=== PATIENT | female | born 1995 | race Caucasian/White ===

== ENCOUNTER 2016-06-07 13:07 | Emergency (ER) | payer BC ==
[2016-06-07 14:45] VITALS: BP 101/64
--- NOTE | 2016-06-07 15:38 | UC ---
Respiratory Complaint HPI - HPI Summary HPI Summary: Yesterday developed fever of 104F, nasal congestion, vomited x 1, and cough. Also has had lumbar pain for a few days, worse with fever. - History of Current Complaint Chief Complaint: UCGeneralIllness Stated Complaint: FEVER,CHILLS,LOW BACK PAIN Time Seen by Provider: 06/07/16 15:20 Hx Obtained From: Patient Hx Last Menstrual Period: 06/07/16 ?: No Onset/Duration: Gradual Onset, Lasting Hours Timing: Constant Character: Cough: Nonproductive Associated Signs And Symptoms: Positive: Fever, Chills, Nasal Congestion - Allergies/Home Medications Allergies/Adverse Reactions: Allergies Allergy/AdvReac Type Severity Reaction Status Date / Time No Known Allergies Allergy Verified 06/07/16 15:27 Home Medications: Home Medications Control 1 dose PO DAILY 06/07/16 [History Confirmed 06/07/16] PMH/Surg Hx/FS Hx/Imm Hx Previously Healthy: Yes - Surgical History Surgical History: None - Family History Known Family History: Negative: Blood Disorder - Social History Occupation: Student Alcohol Use: None Substance Use Type: None Smoking Status (MU): Never Smoked Tobacco Review of Systems Constitutional: Fever, Chills Skin: Negative Eyes: Negative ENT: Nasal Discharge Respiratory: Cough Cardiovascular: Negative Gastrointestinal: Vomiting Genitourinary: Negative Motor: Negative Neurovascular: Negative Musculoskeletal: Negative Neurological: Negative Psychological: Negative All Other Systems Reviewed And Are Negative: Yes Physical Exam Triage Information Reviewed: Yes Appearance: Well-Appearing, No Pain Distress, Well-Nourished Vital Signs: Initial Vital Signs Temp 99.9 F 06/07/16 14:41 Pulse 116 06/07/16 14:41 Resp 16 06/07/16 14:41 BP 101/64 06/07/16 14:41 Pulse Ox 99 06/07/16 14:41 Vital Signs Reviewed: Yes Eye Exam: Normal Eyes: Positive: Conjunctiva Clear ENT: Positive: Hearing grossly normal, Pharynx normal, Nasal congestion, TMs normal. Negative: Tonsillar swelling, Tonsillar exudate Dental Exam: Normal Neck exam: Normal Neck: Positive: Supple, Nontender, No Lymphadenopathy Respiratory Exam: Other - occ cough Respiratory: Positive: Chest non-tender, Lungs clear, Normal breath sounds, No respiratory distress, No accessory muscle use Cardiovascular: Positive: No Murmur, Tachycardia Abdomen Description: Positive: Nontender, No Organomegaly, Soft. Negative: Bruit, CVA Tenderness (R), CVA Tenderness (L) Musculoskeletal Exam: Normal Neurological Exam: Normal Psychological Exam: Normal Skin Exam: Normal Diagnostic Evaluation - Laboratory O2 Sat by Pulse Oximetry: 99 Respiratory Course/Dx - Differential Dx/Diagnosis Provider Diagnoses: influenza like illness Discharge - Discharge Plan Condition: Stable Disposition: HOME Prescriptions: Guaifenesin-Codeine [Guaiatussin AC] 5 - 10 ml PO BEDTIME #120 ml MDD 10mL Patient Education Materials: Influenza (ED) Additional Instructions: As we discussed, tamiflu is not considered standard of care for young, healthy people without lung problems. You will probably get better in about the same amount of time whether you start the medicine or not, but you have a high likelihood of experiencing unpleasant side effects such as vomiting. Call or return if you develop increasing fever, shortness of breath, chest pain , bloody sputum, or otherwise worsen. If you have not improved at all after several days, contact your primary care physician or return here.
== END 2016-06-07 15:48 | disposition home or self-care (01) ==
LOC: UCCORT 13:07
DX: J11.1 Influenza due to unidentified influenza virus with other respiratory manifestations (principal)
CPT/HCPCS: 81025; 87086; 99202; G0463

== ENCOUNTER 2017-07-12 09:49 | Emergency (ER) | payer BC ==
[2017-07-12 10:30] VITALS: BP 112/58
[2017-07-12] MEDS ORDERED: Ondansetron ODT TAB* 4 MG PO ONE (10:47)
--- NOTE | 2017-07-12 10:50 | UC ---
FLU HPI - HPI Summary HPI Summary: fevers chills cough and body aches began last night then had a couple episodes of emesis with blood streaking-- - History of Current Complaint Chief Complaint: UCRespiratory Stated Complaint: VOMITING, FEVER Time Seen by Provider: 07/12/17 10:34 Hx Obtained From: Patient Hx Last Menstrual Period: 06/22/17 ?: No Onset/Duration: Sudden Onset, Lasting Days - 1, Still Present Severity Currently: Moderate Severity Initially: Moderate Pain Intensity: 5 Pain Scale Used: 0-10 Numeric Associated Signs & Symptoms: Positive: Fever, Myalgia, Cough, Nasal Congestion, Headache, Vomiting Related Hx: Possible Flu/Infectious Exposure - Allergy/Home Medications Allergies/Adverse Reactions: Allergies Allergy/AdvReac Type Severity Reaction Status Date / Time No Known Allergies Allergy Verified 07/12/17 10:30 Home Medications: Home Medications Acetaminophen [Acetaminophen Extra Strength] 1,000 mg PO ONCE PRN 07/12/17 [ History Confirmed 07/12/17] Norgestimate-Ethinyl Estradiol [Sprintec 28 Day Tablet] 1 tab PO DAILY 07/12/17 [History Confirmed 07/12/17] PMH/Surg Hx/FS Hx/Imm Hx Previously Healthy: Yes - Surgical History Surgical History: Yes Surgery Procedure, Year, and Place: appy 2017 - Family History Known Family History: Positive: None Negative: Blood Disorder - Social History Occupation: Student Lives: Dormitory/Roommates - 2 members of her friend group have similar symptoms Alcohol Use: Weekly Substance Use Type: None Smoking Status (MU): Never Smoked Tobacco Review of Systems Constitutional: Fever, Chills, Fatigue Skin: Negative Eyes: Negative ENT: Nasal Discharge Respiratory: Cough Cardiovascular: Negative Gastrointestinal: Vomiting, Nausea Genitourinary: Negative Motor: Negative Neurovascular: Negative Musculoskeletal: Myalgia Neurological: Negative Psychological: Anxious Is Patient Immunocompromised?: No All Other Systems Reviewed And Are Negative: Yes Physical Exam Triage Information Reviewed: Yes Appearance: Well-Appearing, No Pain Distress, Well-Nourished Vital Signs: Initial Vital Signs Temp 99.2 F 07/12/17 10:21 Pulse 99 07/12/17 10:21 Resp 16 07/12/17 10:21 BP 112/58 07/12/17 10:21 Pulse Ox 99 07/12/17 10:21 Vital Signs Reviewed: Yes Eye Exam: Normal Eyes: Positive: Conjunctiva Clear ENT Exam: Normal ENT: Positive: Normal ENT inspection, Hearing grossly normal, Pharynx normal, TMs normal, Uvula midline. Negative: Nasal congestion, Nasal drainage, Tonsillar swelling, Tonsillar exudate, Trismus, Muffled voice, Hoarse voice, Dental tenderness, Sinus tenderness Dental Exam: Normal Neck exam: Normal Neck: Positive: Supple, Nontender, No Lymphadenopathy Respiratory Exam: Normal Respiratory: Positive: Chest non-tender, Lungs clear, Normal breath sounds, No respiratory distress, No accessory muscle use Cardiovascular Exam: Normal Cardiovascular: Positive: RRR, No Murmur, Pulses Normal, Brisk Capillary Refill Abdominal Exam: Normal Abdomen Description: Positive: Nontender, No Organomegaly, Soft. Negative: CVA Tenderness (R), CVA Tenderness (L), Distended, Guarding Bowel Sounds: Positive: Present Musculoskeletal Exam: Normal Musculoskeletal: Positive: Strength Intact, ROM Intact, No Edema Neurological Exam: Normal Neurological: Positive: Alert, Muscle Tone Normal Psychological Exam: Normal Skin Exam: Normal Diagnostics - Laboratory Diagnostic Studies Completed/Ordered: influenza B (+) Re-Evaluation - Re-Evaluation First Eval Change: Improved - with zofran Flu Course/Dx - Course Course Of Treatment: zofran, tamiflu, increase fluids and advance diet slowly as tolerated, [facility] or return as needed - Differential Dx/Diagnosis Provider Diagnoses: Influenza B Discharge - Discharge Plan Condition: Stable Disposition: HOME Prescriptions: Ondansetron [Zofran Odt] 4 mg PO Q6H PRN #6 tab.rapdis PRN Reason: nausea/vomiting Oseltamivir CAP* [Tamiflu CAP*] 75 mg PO BID #10 cap Patient Education Materials: Influenza (ED), Acute Nausea and Vomiting (ED) Forms: *School Release Referrals: [facility] [Outside] - If Needed
== END 2017-07-12 11:18 | disposition home or self-care (01) ==
LOC: UCCORT 09:49
DX: J10.1 Influenza due to other identified influenza virus with other respiratory manifestations (principal)
CPT/HCPCS: 87502; 99212; A9270-GY; G0463